=== PATIENT | female | born 1950 | race Caucasian/White ===

== ENCOUNTER 2021-12-23 06:42 | Inpatient (IN) ==
[~2021-12-23 06:42] MED LIST: Buffered Lidocaine 1% SYRIN 1 ml INTRADERM ONE; Lactated Ringers 1000 ml BAG 1,000 ML IV SCH
[2021-12-23] MEDS ORDERED: ceFAZolin 2 GM in NS PREMIX 2 GM/100 ML BAG IVPB ONE (07:15)
[2021-12-23] MEDS ORDERED: Prochlorperazine 5 mg/ml 2 ml VIAL (10 mg) IV PRN (07:30)
[2021-12-23] MEDS ORDERED: HYDROmorphone 1 MG/1 ML SYRINGE IV PRN (07:30)
[2021-12-23] MEDS ORDERED: Naloxone 0.4 mg VIAL 0.4 mg/ml 1 ml VIAL IV PRN (07:30)
[2021-12-23] MEDS ORDERED: diPHENhydraMINE IV 50 MG/ML 1 ml VIAL (BENADRYL) IV PRN ×2 (07:30→10:27)
[2021-12-23] MEDS ORDERED: Lidocaine 2% PF 5 ML VIAL ONE (08:09)
[2021-12-23] MEDS ORDERED: Propofol 10 MG/ML 20 ML BTL ONE (08:09)
[2021-12-23] MEDS ORDERED: Midazolam 2 mg/2 ml VIAL 1 mg/ml 2 ml VIAL (2 mg) ONE ×2 (08:11→08:27)
[2021-12-23] MEDS ORDERED: Ketamine HCL 50 mg/ml 10 ml VIAL (500 MG) ONE (08:11)
[2021-12-23] MEDS ORDERED: ROPIVACAINE 5 MG/ML 30 ML BTL (0.5%) ONE (08:23)
[2021-12-23] MEDS ORDERED: fentaNYL 100 mcg/2 ml 50 MCG/ML VIAL ONE (08:27)
[2021-12-23] MEDS ORDERED: Ondansetron 4 mg VIAL 2 MG/ML 2 ml VIAL ONE (09:54)
[2021-12-23] MEDS ORDERED: Ondansetron 4 mg VIAL 2 MG/ML 2 ml VIAL IV PRN (10:27)
[2021-12-23] MEDS ORDERED: diPHENhydraMINE 25 mg TAB PO PRN (10:27)
[2021-12-23] MEDS ORDERED: Ondansetron ODT 4 mg TAB 4 MG TAB PO PRN (10:27)
[2021-12-23] MEDS ORDERED: Magnesium Hydroxide LIQ 30 ML UDC PO PRN (10:27)
[2021-12-23] MEDS ORDERED: Morphine 2 MG/ML SYRINGE IV PRN (10:27)
[2021-12-23] MEDS ORDERED: Lactulose 30 ml UDC PO PRN (10:27)
[2021-12-23] MEDS ORDERED: ceFAZolin 1 GM ADVAN 1 GM in NS 0.9% 50 ML 50 ML IVPB SCH (11:00)
[2021-12-23] MEDS: Lactated Ringers 1000 ml BAG 1,000 ML IV SCH ×2 (13:50→23:51)
[2021-12-23] MEDS: ceFAZolin VIAL 1 GM in NS 0.9% 50 ML 50 ML IVPB SCH (17:04)
[2021-12-23] MEDS: Magnesium Hydroxide LIQ 30 ML UDC PO SCH (21:22)
[2021-12-24] MEDS: ceFAZolin VIAL 1 GM in NS 0.9% 50 ML 50 ML IVPB SCH ×2 (02:07→09:56)
[2021-12-24 05:51] LABS: Hematocrit 35 % (35-47); Hemoglobin 11.8 g/dL (12.0-16.0); Mean Platelet Volume 7.8 fL (7.4-10.4); Platelet Count 189 10^3/uL (150-450)
[2021-12-24 06:57] LABS: Calcium 8.4 mg/dL (8.6-10.3); Potassium 4.7 mmol/L (3.5-5.0); eGFR CKD-EPI 86.8 (>60)
[2021-12-24] MEDS: Magnesium Hydroxide LIQ 30 ML UDC PO SCH ×2 (07:38→21:20)
[2021-12-24] MEDS: Vitamin THERAPEUTIC TAB PO SCH (07:39)
[2021-12-24] MEDS ORDERED: Iohexol 350 (CONTRAST) 500 ML MDV IV ONE (10:15)
[2021-12-25] MEDS: Vitamin THERAPEUTIC TAB PO SCH (08:40)
[2021-12-25] MEDS: Magnesium Hydroxide LIQ 30 ML UDC PO SCH (08:41)
[2021-12-25 11:20] VITALS: BP 132/75
== END 2021-12-25 13:37 | disposition home or self-care (01) | DRG 469 ==
LOC: INTOOBSV 06:42 → AA 06:42 → SSU 13:54
PROVIDERS: ADMIT Orthopaedic Surgery Adult Reconstructive Orthopaedic Surgery; ATTEND Orthopaedic Surgery Adult Reconstructive Orthopaedic Surgery